=== PATIENT | female | born 1945 | race Two or more races ===

== ENCOUNTER 2018-08-04 09:06 | Day surgery (SDC) | payer MEDICARE, OTHER ==
[2018-08-04] MEDS ORDERED: PROPOFOL 40 ML (10:21)
[2018-08-04] MEDS ORDERED: LIDOCAINE 2% (SDV) 5 ML INJ (10:21)
[2018-08-04] MEDS ORDERED: ONDANSETRON 4 MG INJ IV (10:30)
[2018-08-04] MEDS ORDERED: PROPOFOL 20 ML (11:29)
== END 2018-08-04 15:30 | disposition home or self-care (01) ==
LOC: GIL 09:06
DX: R19.4 Change in bowel habit (principal); K64.8 Other hemorrhoids; K57.30 Diverticulosis of large intestine without perforation or abscess without bleeding; K21.9 Gastro-esophageal reflux disease without esophagitis; D12.5 Benign neoplasm of sigmoid colon
CPT/HCPCS: 43239; 88305; 88312